=== PATIENT | female | born 1935 | race Caucasian/White ===

== ENCOUNTER 2018-04-05 08:41 | Emergency (ER) | payer MEDICARE ==
[2018-04-05 09:00] VITALS: BP 140/78
--- NOTE | 2018-04-05 09:00 | UC ---
Skin Complaint HPI - HPI Summary HPI Summary: Patient is 82 year old female , who present today to the urgent care with for rash since yesterday. She noticed red, raised, itchy,vesicular rash on her back that started last night. This morning, she has 2 new areas. She reports history of shingles approx 10 yrs ago. She denies any pain with the rash but it's itchy. Denies any fever, chills, cough chest pain or shortness of breath . Denies any abdominal pain , nausea or vomiting , diarrhea or constipation. - History of Current Complaint Time Seen by Provider: 04/05/18 08:44 Stated Complaint: SKIN COMPLAINT BACK Hx Obtained From: Patient Hx Last Menstrual Period: n/a - Allergy/Home Medications Allergies/Adverse Reactions: Allergies Allergy/AdvReac Type Severity Reaction Status Date / Time No Known Allergies Allergy Verified 04/05/18 09:00 Home Medications: Home Medications Potassium Citrate [Urocit-K] 10 meq PO BID 04/05/18 [History Confirmed 04/05/18] PMH/Surg Hx/FS Hx/Imm Hx - Additional Past Medical History Additional PMH: Past medical history: Hypertension and diabetes :she has been off meds now GERD for which she takes omeprazole Hyperlipidemia on Lipitor Anxiety and depression on Celexa Glaucoma on eyedrops Renal stones Previously Healthy: Yes - Surgical History Surgical History: Yes Surgery Procedure, Year, and Place: mastectomy 1976. gallbladder 2000. umbilical hernia 2001 - Social History Alcohol Use: Rare Substance Use Type: None Smoking Status (MU): Never Smoked Tobacco - Immunization History Most Recent Tetanus Shot: UNKNOWN Review of Systems All Other Systems Reviewed And Are Negative: Yes Constitutional: Positive: Negative Skin: Positive: Rash - Vesicular eruption on her upper back Eyes: Positive: Negative ENT: Positive: Negative Respiratory: Positive: Negative Cardiovascular: Positive: Negative Gastrointestinal: Positive: Negative Genitourinary: Positive: Negative Motor: Positive: Negative Neurovascular: Positive: Negative Musculoskeletal: Positive: Negative Neurological: Positive: Negative Psychological: Positive: Negative Is Patient Immunocompromised?: No Physical Exam - Summary Physical Exam Summary: Physical Exam: Const: Appears well. No signs of apparent distress present. Alert and oriented x 3. Musculo: Walks with a normal gait. Head/Face: Atraumatic, normocephalic on inspection. Eyes: EOMI and PERRLA in both eyes. Conjunctivae clear. No discharge noted ENT: Hearing normal, TM normal appearing bilaterally . Respiratory: Respirations are unlabored. Lungs clear to auscultation bilaterally, no wheezing , rhonchi or rales noted . CVS: Regular rate and Rhythm, S1S2 normal , no murmurs identified. Extremities: Peripheral circulation is grossly normal. Pulses 2+ Abdomen : Soft non tender , nondistended , Bowel sounds present . No guarding , rebound tenderness or rigidity noted. Skin: Erythematous vesicular eruptions noted on right upper back- 3 similar lesions measuring about 2 cm x2 cm size. No crusting or drainage noted. Neuro: Cranial nerves II to XII intact, motor and sensory intact. DTR Intact bilaterally. Mood is normal. Affect is normal. Triage Information Reviewed: Yes Vital Signs Reviewed: Yes Images Front/Back of Body, Lg ([place]): 1 - 1 2 - 2 3 - 3 Course/Dx - Course Course Of Treatment: During the visit today, we discussed the findings and further plan to treat it with antiviral. I will prescribe the medication to the pharmacy . Patient expressed understanding . - Diagnoses Provider Diagnosis: Shingles Discharge - Sign-Out/Discharge Documenting (check all that apply): Patient Departure All imaging exams completed and their final reports reviewed: No Studies - Discharge Plan Condition: Stable Disposition: HOME Prescriptions: ValACYclovir (*) [Valtrex 1 GM(*)] 1 gm PO TID 10 Days #30 tab Patient Education Materials: Shingles (ED) Referrals: Nell Cadena MD [Primary Care Provider] - 1 Week Additional Instructions: Please start taking the medication as prescribed to the pharmacy . Follow up with your primary care doctor in 1 week Patients blood pressure slightly high in Urgent care today , plan follow up with PCP for better control Return to Urgent care / ER if symptoms get worse. - Billing Disposition and Condition Condition: STABLE Disposition: Home
== END 2018-04-05 09:20 | disposition home or self-care (01) ==
LOC: UCCORT 08:41
DX: B02.9 Zoster without complications (principal)
CPT/HCPCS: 99202; G0463